=== PATIENT | male | born 1945 | race Caucasian/White ===

== ENCOUNTER → 2017-04-23 | Outpatient (CLI) | payer OTHER, MEDICARE | LOC: BMCIMAGING 07:20 | PROVIDERS: ATTEND Internal Medicine | DX: K76.0 Fatty (change of) liver, not elsewhere classified (principal); K76.89 Other specified diseases of liver ==

== ENCOUNTER → 2017-08-24 | Day surgery (SDC) | payer OTHER, MEDICARE ==
--- NOTE | 2017-08-28 08:04 | GPN ---
[f rep st] PROCEDURE NOTE DATE OF PROCEDURE: 08/24/2017 PREOPERATIVE DIAGNOSIS: Elevated PSA. POSTOPERATIVE DIAGNOSIS: Elevated PSA. NAME OF PROCEDURE: Transrectal ultrasound of the prostate with ultrasound-guided biopsies. INDICATIONS: The patient is a 71-year-old male with a history of elevated PSA. He has had levels in excess of 5 ng/mL. After discussing options, he elected to come in for prostate biopsies. DESCRIPTION OF PROCEDURE: With the patient in the left lateral decubitus position and after signing informed consent, the prostate ultrasound was inserted into the bladder. Volume and imaging images w ere obtained. The periprosthetic tissue was anesthetized with 1% lidocaine solution. Twelve biopsie s were obtained from the prostate from the right and left base, mid and apical tissue. The patient t olerated the procedure well and was discharged in stable condition. /[id number]/MODL
== END | disposition home or self-care (01) ==
LOC: BMCIMAGING 07:28
PROVIDERS: ATTEND Urology
PROC: 0VB03ZX Excision of Prostate, Percutaneous Approach, Diagnostic (ICD-10-PCS; principal; 2017-08-24)
PROC: BV49ZZZ Ultrasonography of Prostate and Seminal Vesicles (ICD-10-PCS; 2017-08-24)
DX: R97.20 Elevated prostate specific antigen [PSA] (principal)

== ENCOUNTER → 2017-11-13 | Outpatient (CLI) | payer OTHER, MEDICARE | LOC: BMCIMAGING 07:15 | PROVIDERS: ATTEND Internal Medicine | DX: K76.89 Other specified diseases of liver (principal) ==

== ENCOUNTER → 2017-12-25 | Outpatient (CLI) | payer OTHER, MEDICARE ==
[~2017-12-25] MED LIST: GADOBUTROL 10 ML VIAL IVP ONE
== END ==
LOC: FIMAGING 09:40
PROVIDERS: ATTEND Urology
DX: C61 Malignant neoplasm of prostate (principal); R93.49 Abnormal radiologic findings on diagnostic imaging of other urinary organs
CPT/HCPCS: 72197; 76377; A9585